=== PATIENT | male | born 1990 | race Caucasian/White ===

== ENCOUNTER 2017-04-02 14:57 | Emergency (ER) | payer SELFPAY ==
[2017-04-02] MEDS ORDERED: SODIUM BICARBONATE 8.4% INJ 50ML SYRINGE IV ONE (15:15)
[2017-04-02] MEDS ORDERED: EPINEPHrine HCL 1 MG/10 ML SYRG IV ONE (15:15)
== END 2017-04-02 23:18 | disposition expired ==
LOC: EDAGE 14:57 → ER 15:14
DX: I46.9 Cardiac arrest, cause unspecified (principal); S09.90XA Unspecified injury of head, initial encounter; V19.49XA Pedal cycle driver injured in collision with other motor vehicles in traffic accident, initial encounter; Y93.89 Activity, other specified; Y99.8 Other external cause status; Y92.410 Unspecified street and highway as the place of occurrence of the external cause
CPT/HCPCS: 92950; 99285; J0171